=== PATIENT | female | born 1985 | race Caucasian/White ===

== ENCOUNTER 2022-02-23 09:54 | Emergency (ER) | payer MEDICAID, SELFPAY ==
[~2022-02-23] VITALS: Ht 160 cm; Wt 62.7 kg
[~2022-02-23 09:54] MED LIST: DEPA500T2 OR; LEXA1TAB2 OR; NICO21DI4 TD
[2022-02-23 09:55] VITALS: BP 160/76
[2022-02-23] MEDS ORDERED: LIDOCAINE 1% MDV 20ML VIAL SC ONE (10:30)
[2022-02-23] MEDS ORDERED: BACT800T5 PO ×2 (11:07→11:09)
== END 2022-02-23 11:23 | disposition home or self-care (01) ==
LOC: M ED 09:54
DX: N75.1 Abscess of Bartholin's gland (principal); F17.200 Nicotine dependence, unspecified, uncomplicated; Z91.030 Bee allergy status